=== PATIENT | male | born 1990 | race Caucasian/White ===

== ENCOUNTER 2019-07-30 11:23 | Day surgery (SDC) | payer OTHER ==
[2019-07-30] MEDS ORDERED: fentaNYL 250 MCG/5 ML VIAL IVP ONE (11:24)
[2019-07-30] MEDS ORDERED: MIDAZOLAM 2 MG/2 ML VIAL IVP ONE (11:24)
[2019-07-30] MEDS ORDERED: LACTATED RINGERS 1,000 ML IV ONE (12:15)
[2019-07-30 14:57] VITALS: BP 115/62
== END 2019-07-30 11:24 | disposition home or self-care (01) ==
LOC: SDS 11:23
PROVIDERS: ATTEND Internal Medicine
PROC: 0DJD8ZZ Inspection of Lower Intestinal Tract, Via Natural or Artificial Opening Endoscopic (ICD-10-PCS; principal; 2019-07-30 13:00)
DX: K62.5 Hemorrhage of anus and rectum (principal); K64.0 First degree hemorrhoids
CPT/HCPCS: 45378; J7120

== ENCOUNTER 2019-08-01 19:09 | Emergency (ER) | payer OTHER ==
--- NOTE | 2019-08-01 20:37 | ED Physician Documentation ---
PD HPI UPPER EXT INJURY - Stated complaint Stated Complaint: RT SHOULDER PX - Chief complaint Chief Complaint: Ext Problem - History obtained from History obtained from: Patient - History of Present Illness Location: Right, Shoulder Type of injury: Fall (Fell off skateboard and landed on the right shoulder) Where injury occurred: Street Timing - onset: How many hours ago (3) Timing - duration: Hours (3) Timing - details: Gradual onset Pain level max: 7 Pain level now: 5 Improved by: Rest Worsened by: Moving, Palpating Associated symptoms: No: Weakness, Numbness, Tingling, Swelling Contributing factors: No: Anticoagulated, Prior ortho surgery, Prosthetic joint Similar symptoms before: Has not had sx before Recently seen: Not recently seen - Additonal information Additional information: Patient is right-handed. Worse with movement and better with rest Review of Systems Musculoskeletal: denies: Neck pain, Back pain Neurologic: denies: Head injury PD PAST MEDICAL HISTORY - Past Medical History Past Medical History: Yes Cardiovascular: None Respiratory: None Neuro: None Endocrine/Autoimmune: None GI: None : None HEENT: Chronic sinusitis Psych: None Musculoskeletal: None Derm: None - Past Surgical History Past Surgical History: No General: Appendectomy HEENT: Tonsil/Adenoidectomy, Other - Present Medications Home Medications: Ambulatory Orders Medication Instructions Recorded Confirmed Acetaminophen 1 mg PO Q6H 05/09/16 05/09/16 Aleve` 1 mg PO Q8HR 05/09/16 05/09/16 Cyclobenzaprine [Flexeril] 10 mg PO TID PRN #20 tablet 05/09/16 Hydrocodone/Acetaminophen [Vicodin 1 - 2 each PO Q6HR PRN #14 tablet 05/09/16 5-300 mg Tablet] - Allergies Allergies/Adverse Reactions: Allergies Allergy/AdvReac Type Severity Reaction Status Date / Time No Known Drug Allergies Allergy Verified 08/01/19 19:19 - Social History Does the pt smoke?: No Smoking Status: Never smoker Does the pt drink ETOH?: Yes Does the pt have substance abuse?: No - Immunizations Immunizations are current?: Yes - POLST Patient has POLST: No PD ED PE NORMAL - Vitals Vital signs reviewed: Yes - General General: Alert and oriented X 3, No acute distress - HEENT HEENT: Atraumatic, PERRL, Ears normal, Moist mucous membranes, Pharynx benign - Neck Neck: Supple, no meningeal sign, No bony TTP - Cardiac Cardiac: RRR - Respiratory Respiratory: No respiratory distress, Clear bilaterally - Back Back: No spinal TTP - Derm Derm: Warm and dry - Extremities Extremities: No deformity, Other (TTP R shoulder, mainly over the trapezius. No deformity. FROM. 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 intact, No motor deficit, No sensory deficit, Normal speech - Psych Psych: Normal mood, Normal affect Results - Vitals Vitals: Vital Signs - 24 hr 08/01/19 08/01/19 19:19 21:02 Temperature 36.5 C Heart Rate 70 60 Respiratory 16 16 Rate Blood Pressure 126/65 117/75 O2 Saturation 98 98 Oxygen O2 Source Room air - Rads (name of study) R shoulder xray Radiology: Prelim report reviewed, EMP read contemporaneously, See rad report (normal) PD MEDICAL DECISION MAKING - ED course Complexity details: reviewed results, re-evaluated patient, considered differential, d/w patient ED course: 28-year-old male with a right shoulder contusion. No acute findings on x-ray. Neurovascular intact. No evidence of significant rotator cuff injury. Will utilize gentle stretching at home, ice and heat as needed. Also NSAIDs. Patient counseled regarding signs and symptoms for which I believe and urgent re-evaluation would be necessary. Patient with good understanding of and agreement to plan and is comfortable going home at this time This document was made in part using voice recognition software. While efforts are made to proofread this document, sound alike and grammatical errors may occur. Departure - Departure Disposition: 01 Home, Self Care Clinical Impression: Sprain of right shoulder Qualifiers: Encounter type: initial encounter Shoulder sprain type: unspecified sprain Qualified Code(s): S43.401A - Unspecified sprain of right shoulder joint, initial encounter Condition: Good Instructions: ED Sprain Shoulder Follow-Up: your,doctor in 1 week [Other] [facility] [Provider Group] Comments: You can use motrin or aleve as needed for pain. continue to gently move and stretch the arm. Return if you worsen. Discharge Date/Time: 08/01/19 21:01
--- NOTE | 2019-08-01 20:53 | XRAY Report ---
Reason: fall, R shoulder pain Procedure Date: 08/01/2019 Accession Number: [id number] / [id number] Procedure: XR - Shoulder 3 View RT CPT Code: FULL RESULT: EXAM: RIGHT SHOULDER RADIOGRAPHY EXAM DATE: 08/01/2019 08:08 PM. CLINICAL HISTORY: Right shoulder pain COMPARISON: None. TECHNIQUE: 3 views. FINDINGS: Bones: Normal. No fracture or bone lesion. Joints: The glenohumeral and acromioclavicular joints are normal. Soft tissues: The visualized hemithorax is unremarkable. No soft tissue swelling. IMPRESSION: No evidence of fracture or dislocation. [facility]
[2019-08-01 21:03] VITALS: BP 117/75
== END 2019-08-01 21:01 | disposition home or self-care (01) ==
LOC: ED 19:09
DX: S43.401A Unspecified sprain of right shoulder joint, initial encounter (principal); S40.011A Contusion of right shoulder, initial encounter; V00.131A Fall from skateboard, initial encounter; Y93.51 Activity, roller skating (inline) and skateboarding; Y92.410 Unspecified street and highway as the place of occurrence of the external cause
CPT/HCPCS: 99282; 99283